=== PATIENT | female | born 1990 | race Caucasian/White ===

== ENCOUNTER 2024-03-12 21:37 | Emergency (ER) | payer OTHER, BC, SELFPAY ==
[2024-03-12 22:30] VITALS: BP 118/82; PULSE 74; TEMP 36.7; O2SAT 100; BMI 330.8
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
[2024-03-12] MEDS: ACETAMINOPHEN 325 MG TABLET 650 MG PO (23:19)
[2024-03-12] MEDS: IBUPROFEN 600 MG TABLET PO (23:20)
[2024-03-13 00:25] VITALS: BP 116/80; PULSE 81; O2SAT 98
[2024-03-13] MEDS: ONDANSETRON 4 MG RAPDIS TABLET SL (00:31)
[2024-03-13] MEDS: HYDROCODONE/ACET 5-325 MG TABLET 2 TAB PO (00:31)
== END 2024-03-13 00:36 | disposition home or self-care (01) ==
PROVIDERS: Emergency Provider Emergency Medicine
DX: S16.1XXA Strain of muscle, fascia and tendon at neck level, initial encounter (principal); S29.012A Strain of muscle and tendon of back wall of thorax, initial encounter; S63.501A Unspecified sprain of right wrist, initial encounter; V49.49XA Driver injured in collision with other motor vehicles in traffic accident, initial encounter
CPT/HCPCS: 71046; 72040; 72072; 73110; 73130; 99285; Q0162

== ENCOUNTER 2024-10-05 07:28 | Emergency (ER) | payer SELFPAY ==
--- OUTSIDE RECORDS SUMMARY | 2024-04-13 11:54 | XMS_ITS ---
Author Name Auto Generated Organization OHIP Care Team Providers Care Plate Setter Name Role Phone SOPHIE GUILLERMO Referring Unavailable NON STAFF Primary Care Unavailable AshleighDiana Admitting Unavailable Ashleigh Diana M Attending Unavailable NON STAFF Primary Care Unavailable AshleighMagalieDiana M Admitting Unavailable Ashleigh Diana M Attending Unavailable None Primary Care Unavailable Gerding MEASUREMENT AND SENSING TECHNICIAN-DINKEY MOTOR OPERATOR, Charisma A Attending Unavai lable Gerding MEASUREMENT AND SENSING TECHNICIAN-DINKEY MOTOR OPERATOR, Charisma A Attending Unavai lable None Primary Care Unavailable GERDING, CHARISMA Referring Unavailable No Family, Physician Primary Care Unavailable GERDING, CHARISMA Referring Unavailable No Family, Physician Primary Care Unavailable PROBLEMS DATE TYPE CONDITION / CODE ATTENDING STATUS [facility] 04/13/2024 Unknown Cough, unspecifi ed / R05.9(ICD-10) Diana Sotelo [facility] 04/13/2024 Unknown Shortness of karin ath / R06.02(ICD-10) Diana Sotelo [facility] 02/12/2024 Unknown Pain in left wri st / M25.532(ICD-10) NA [facility] 02/12/2024 Admitting diagnosis Pain in left wrist / M25.532(ICD-10) NA Active [facility] 02/12/2024 Working diagnosis Other obesity due to excess calories / UNK(Unknown) Gerding MEASUREMENT AND SENSING TECHNICIAN-DINKEY MOTOR OPERATORCharisma Active [facility] 02/12/2024 Unknown Encounter for gynecological examination (general) (routine) without abnormal findings / Z01.419(ICD-10) NA [facility] 02/12/2024 Unknown Pelvic and perin eal pain / R10.2(ICD-10) [facility] 02/12/2024 Unknown Encounter for screening for depression / Z13.31(ICD-10) [facility] 02/12/2024 Unknown 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, unspecified / D06.9(ICD-10) [facility] 02/12/2024 Unknown Gynecologic Exam / FREETEXT(AOF) [facility] 01/03/2024 Unknown Chronic cough / R05.3(ICD-10) Diana Sotelo [facility] 10/09/2023 Unknown Contraception / FREETEXT(AOF) [facility] PROCEDURES No Procedure Records Found RESULTS XR CHEST 2V* Observed: 04/13/2024 11:13 AM Status: COMPLETED Source: [facility] [place] [address] XRay Report Signed Patient: Sridevi Pandya MR#: [id number] : 1990 Acct:[id number] Age/Sex: 33 / F ADM Date: 04/13/24 Loc: XDUCLY Room: Type: [facility] Attending Dr: Diana Sotelo APRN Copies to: Diana Sotelo APRN Ordering Provider: Diana Sotelo APRN Date of Service: 04/13/24 XR/XR chest 2V*: R05.9 - Cough, unspecified Chest 2 views CLINICAL HISTORY: Productive cough with yellow phlegm. COMPARISON: Chest 01/03/2024 FINDINGS: Heart normal in size. Lungs are clear. No free air. XR/XR chest 2V* IMPRESSION: NO ACUTE CARDIOPULMONARY ABNORMALITY. Impression dictated by: Miles Ochoa Jr., D.O.04/13/2024 11:13 AM Dictation Location: [facility]22 Transcribed By: [facility] 04/13/241112 Dictated By: Miles Ochoa Jr, DO 04/13/24 111 Signed By: <Electronically signed by Miles Ochoa Jr, DO in OV> 04/13/24 1113 XR WRIST LEFT (MIN 3 VIEWS) Observed: 9:10 AM Status: F Source: [facility] XR WRIST LEFT (MIN 3 VIEWS) CLINICAL INFORMATION: Pain in left wrist COMPARISON: No prior study. TECHNIQUE: Standard views of the wrist were obtained FINDINGS: No acute fracture or dislocation is seen. There is no foreign body. Moderate soft tissue swelling overlies the carpal bones dorsally and medially. IMPRESSION: Soft tissue swelling. No fracture. This report has been created using voice recognition software. It may contain minor errors which are inherent in voice recognition technology. Electronically signed by Dr. Augustin Uriarte Interpreted by: Augustin Uriarte MD Signed by: Augustin Uriarte MD 02/13/24 Final result HIGH RISK HPV W/TRINA Observed: 4 3:19 AM Status: COMPLETED Source: [facility] HPV SPECIMEN TYPE ThinPrep HPV 16 Negative (qualifier value) HPV 18 Negative (qualifier value) OTHER HIGH RISK HPV Negative (qualifier value) HPV types 31,33,35,39,45,52,56,58,59,66 and 68 DNA were undetectable. Performed By: #### [id number] # ### [facility] ([id number]) [address] [facility] [address]LO[address] [place], [place] [address] [place] [address] LAB ([id number]) [address] [place] [address], [address] [place] [address] CYTOLOGY Collected: 4 3:19 AM Status: COMPLETED Source: [facility] TYPE CODE TESTS RESULT OUT OF RANGE REFERENCE UNITS LAB [id number]&rpt Cytology Normal Result Comment: [facility] [address] [place] [address] Gynecologic Cytology Consultation Patient Name:SRIDEVI PANDYA:1990 (Age: 33)Gender:FTaken:4Reported:4Physician(s):Sophie Draper, MEASUREMENT AND SENSING TECHNICIAN-[facility] ([phone])Copy To: Rec. #:[id number]: #[id number] Final Cytologic Interpretation ThinPrep Pap Test (Cervical): Satisfactory for evaluation. A transformation zone component is present. NEGATIVE FOR INTRAEPITHELIAL LESION OR MALIGNANCY. [facility]/02/28/2024 Interpretation [place] [address], License number: [id number]. Electronically Signed Out By FAB Pastor(ASCP) Date of Last Menstrual Period: 02/05/24 Other Clinical Conditions: Previous abnormal pap Z01.419 Regenerator Operator exam wo/abn findings D06.9 CIS of cervix Source of Specimen ThinPrep Pap Test (Cervical) Thin Prep Pap (STAFF CLIMATE SCIENTIST) Fee Code(s): 72207 The Pap test is a screening test with an inherent, but low, probability of error. The Pap test is primarily effective for the diagnosis and prevention of squamous cell carcinoma. Regular screening is critical for prevention. ThinPrep liquid-based slides, which meet the Wood Car Builder criteria for automated screening, have been screened by the AllocadePrep Imaging System (as of 12/16/06) along with an additional manual rescreening by a jewel inspector and, if indicated, by a pathologist. XR CHEST 2V* Observed: 01/03/2024 6:46 PM Status: COMPLETED Source: [facility] Main [place] [id number] XRay Report Signed Patient: Sridevi Pandya MR#: [id number] : 1990 Acct:[id number] Age/Sex: 33 / F ADM Date: 01/03/24 Loc: XDUCLY Room: Type: REG CLI Attending Dr: Diana Sotelo APRN Copies to: Diana Sotelo APRN Ordering Provider: Diana Sotelo APRN Date of Service: 01/03/24 XR/XR chest 2V*: R05.3 - Chronic cough Plain film chest 2 view HISTORY: Productive cough COMPARISON: None FINDINGS: SUPPORT DEVICES: None POSTSURGICAL CHANGES: None HEART: Within normal limits PULMONARY RHEA: Within normal limits MEDIASTINUM: Unremarkable LUNGS AND PLEURA: No acute lung process, pleural effusion or pneumothorax identified. BONY STRUCTURES: Intact ADDITIONAL FINDINGS None XR/XR chest 2V* IMPRESSION: No acute process. Impression dictated by: Henry Stout M.D.01/03/2024 6:47 PM Dictation Location: [place] [address] Transcribed By: [facility] 01/03/241846 Dictated By: Henry Stout DO 01/03/241845 Signed By: <Electronically signed by Henry Stout DO in OV> 01/03/241846 ALLERGIES DATE TYPE / CODE NAME / CODE REACTION SEVERITY SOURCE 04/13/2024 Drug Allergy/2248821 02(SNOMED CT) No Known Allergies/S032440485 (RXNORM) Unknown [facility] Drug Class/127927322 (SNOMED CT) NO KNOWN ALLERGIES [facility] ENCOUNTERS ADMIT/DISCHARGE ACCOUNT NUMBER ADMITTING ENCOUNTER CLASS LOCATION SOURCE 04/13/2024/04/13/19 [id number] [facility]02/12/20 [id number] Ambulatory Building:[facility] 02/12/2024/02/12/20 24 [id number] Ambulatory Building:[facility] 02/12/2024/02/12/20 24 [id number] [facility] 02/12/2024/02/12/20 24 [id number] [address] [place] [address] [facility] 02/12/2024/02/12/20 24 [id number] [facility]02[facility]12[facility]20 24 [id number] Ambulatory Building:PF _LAB [facility] 01/03/2024/01/03/20 [id number] Ashleigh Diana Fan [facility] 10/09/2023 [id number] Ambulatory Buildin 1 [facility] PAYERS ENCOUNTER GUARANTOR PAYER SUBSCRIBER SOURCE 04/13/[address] [address]Jsu: () Primary Insurance:Self PayPolicy Number: Effective Date:2024-04-13 [facility]2024 SRIDEVI RUBIB: [address] [address]Wnp: () Primary Insurance:GENERIC MCOPolicy Number: [id number] Date:2024-02-11 BROKEN ARROW ABADOB: [id number] [place], [place] [address]Yux: () [facility] 02/12/2024 SRIDEVI RUBIB: [address] [address]Puu: () Primary Insurance:GENERIC MCOPolicy Number: [id number] Date:2024-02-11 BROKEN ARROW ABADOB: [id number] [place], [place] [address]Pby: () [facility] 02/12/2024 SRIDEVI PANDYA[address] [address] Primary Insurance:BLUE CROSSPolicy Number: [id number] Date:[id number] [address]XJ: SRIDEVI PHAMERGENSDOB: [id number] [address] [place] [address]Rab: (HP) [facility] 02/12/2024 Secondary Insurance:SELF PAYPolicy Number: Effective Date:[address] [place], [place] [address]WN[facility]/12/2024 SRIDEVI Tl RUBIB: [address] [address]Tbi: (HP) Primary Insurance:ANTHEM DIRECT ACCESS - JWQ PREFIXPolicy Number: [id number] Date:2023-11-14 SRIDEVI RUBIB: [id number] [place] [address] [place] [address] [facility] 02/12/2024 SRIDEVITONIE PANDYA43[address] [address] Primary Insurance:SELF PAYPolicy Number: Effective Date:[address] [place], [place] [address]TH: [facility] 02/12/2024 SRIDEVI Tl RUBIB: [address] [address]Unb: (HP) Primary Insurance:ANTHEM DIRECT ACCESS - JWQ PREFIXPolicy Number: [id number] Date:2023-11-14 SRIDEVI RUBIB: [id number] [place] [address] [place] [address] [facility] 01/03/2024 Sridevi Brownns[address] [place] [address]Uip: (HP) Primary Insurance:[place] BC/BSPolicy Number: [id number] Date:2024-01-03 Sridevi RubiB: [id number] [address] [place] [address]Awp: (HP) [facility] 01/03/2024 Secondary Insurance:Self PayPolicy Number: Effective Date:2024-01-03 NOT GIVENUNK [facility] 10/09/2023 SRIDEVI SUERO: [id number] [address]Yat: (HP) Primary Insurance:BCBS OUT OF STATE PPO/TRUSTPolicy Number: [id number] Date:2023-04-01 SRIDEVI SUERO: [id number] [address]Hwb: (HP) [facility]
[2024-10-05 07:31] VITALS: BP 132/95; PULSE 95; TEMP 36.9; O2SAT 96; BMI 34.5
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
[2024-10-05] MEDS: KETOROLAC TROMETHAMINE 60 MG/2 ML VIAL IM (08:05)
== END 2024-10-05 08:58 | disposition home or self-care (01) ==
PROVIDERS: Emergency Provider Emergency Medicine
DX: S83.91XA Sprain of unspecified site of right knee, initial encounter (principal); Y93.19 Activity, other involving water and watercraft
CPT/HCPCS: 73562; 96372; 99284; J1885

== ENCOUNTER 2024-10-11 13:25 | Emergency (ER) | payer OTHER, SELFPAY ==
--- OUTSIDE RECORDS SUMMARY | 2021-11-03 06:15 | XMS_ITS | Continuity of Care Document ---
Author Organization [facility] Address [address] [place] [address] Phone Care Team Providers Care Senior Living Advisor Name Role Phone JHONY BAH JULIE Unavailable Unavailable Procedures Procedure Date REPEAT ULTRASOUND EST PT, LOW VISIT REPEAT ULTRASOUND EST PT, HIGH VISIT REPEAT ULTRASOUND LIMITED ULTRASOUND EST PT, LOW VISIT GENETIC COUNSELING SERVICE AT [facility] NEW PT, LOW VISIT COMPREHENSIVE DETAILED ULTRASOUND TRANSVAGINAL (OB) Advance Directives Directive Yes / No Effective Date File Name No Information Encounters Encounter Description Practice Location Reason(s) For Visit Diagnoses Date Provider Providers Copied on Encounter [facility], [address], [place], [address], [place] tel:[phone] [facility] Screening follow-up, Non-visualized anatomy on a previous scanMaternal care for other (suspected) abnormality and damageWeeks Gestation of HJONY BAH. [address], [address], [place], [address], [place]. tel:[phone] Referring Provider: Tomas [address], [place], [address]. tel:[phone] EST PT, LOW VISIT [facility], [address], [place], [address], [place] tel:[phone] [facility] Weeks Gestation of PregnancyMaternal care for other (suspected) abnormality and damageScreening follow-up, Non-visualized anatomy on a previous scan 2 JHONY DUTTA. [address], [address], [place], [address], [place]. tel:[phone] Referring Provider: WISAM WILKERSON, Tomas [facility] [address], [place], [address]. tel:[phone] EST PT, HIGH VISIT [facility], [address], [place], [address], [place] tel:[phone] [facility] Weeks Gestation of PregnancyMaternal care for other (suspected) abnormality and damageWeeks Gestation of PregnancyScreening follow-up, Non-visualized anatomy on a previous scan 2 MD AMANDA POWER. [address], [address], [place], [place], [id number] , [place]. tel:[phone] Referring Provider: VERONIKA MATA, [address] [facility] [address], [place], [address]. tel:[phone] EST PT, LOW VISIT [facility], [address], [place], [address], [place] tel:[phone] [facility] Weeks Gestation of PregnancyMaternal care for other (suspected) abnormality and damage 2 MD VINAY FRANCO. [address], [address], [place], [address], [place]. tel:[phone] Referring Provider: VERONIKA MATA, [address], [place], [address]. tel:[phone] [facility], [address], [place], [address], [place] tel:[phone] [facility] No Information 2 MD AUSTIN SCOTT. [address], [address], [place], [address], [place]. [phone] Referring Provider: VERONIKA MATA, [address] [facility] [address], [place], [address]. tel:[phone] NEW PT, LOW VISIT [facility], [address], [place], [address], [place] tel:[phone] [facility] Weeks Gestation of PregnancyMaternal care for other (suspected) abnormality and damageScreening for cervical length for risk of pre-term labor Apr-2 2 MD MAGGIE RUSS. [address], [address], [place], [address], [place]. tel:[phone] Referring Provider: VERONIKA MATA, [address] [facility] [address], [place], [address]. tel:[phone] Family History Family Member Type Diagnosis Age At Onset No Information Payers Payer name Insurance type Covered libertarian ID Authoriza tion(s) [facility] BLUE CARD [id number] PPO [id number] Social History Type Description Quantity Date Captured Comments Sex Female Smoking Status No Information Chief Complaint And Reason For Visit No Information History Of Present Illness Encounter Date Complaint History Of Prese nt Illness No Information Instructions Date Instruction Additional Infor mation No Information Assessments Type Assessment Date No Information
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
[2024-10-11 13:31] VITALS: BP 139/90; PULSE 115; O2SAT 100; BMI 32.9
--- OUTSIDE RECORDS SUMMARY | 2024-10-11 13:42 | XMS_ITS | Clinical Summary ---
Author Organization [employer] [facility] tem Address [id number] [address] [place] [address] Care Team Providers Care Coding Educator Name Role Phone Unavailable Primary Care Provider Unavailabl e Allergies No known active allergies Medications sertraline (ZOLOFT) 25 mg tablet Take 1 tablet (25 mg total) by mouth in the morning. Active Active Problems Problem Noted Date Diagnosed Date Low back pain 02/12/2024 Obesity (BMI 30.0-34.9) 02/12/2024 Overview (02/12/2024): Discussed BMI at well woman visit Family History Relation Name Status Comments Father Alive Mother Alive Social History Tobacco Use Types Packs/Day Years Used Date Smoking Tobacco: Never Smokeless Tobacco: Never Tobacco Cessation:Counseling Given: Not Answered Alcohol Use Standard Drinks/Week Comments Yes 0 (1 standard drink = 0.6 oz pur e alcohol) socially PHQ-2 Answer Date Recorded Total Score 0 02/12/2024 Hunger Screening Answer Date Recorded Within the past 12 months we worried whether our food would run out before we got money to buy more. Never True 02/12/2024 Within the past 12 months th e food we bought just didn't last and we didn't have money to get more. Never True 02/12/2024 Comments Unknown Sex and Gender Information Value Date Recorded Sex Assigned at Not on file Legal Sex Female 2:11 PM EDT Gender Identity Not on file Sexual Orientation Not on file Last Filed Vital Signs Vital Sign Reading Time Taken Comments Blood Pressure 116/72 02/12/2024 10:22 AM EST Pulse - - Temperature - - Respiratory Rate - - Oxygen Saturation - - Inhaled Oxygen Concentration - - Weight 98.4 kg (217 lb) 02/12/2024 10:22 AM EST Height 170.2 cm (5' 7 ) 02/12/2024 10:22 AM EST Body Mass Index 33.99 02/12/2024 10:22 AM EST Plan of Treatment Health Maintenance Due Date Last Done Comments DTaP,Tdap and Td Vaccines (6 - Tdap) 08/24/2002 12/03/1995, 12/12/1992, 03/11/1992, Additional history exists Influenza Vaccine 11/30/2024 Adult BMI Follow Up Plan 02/11/2025 02/12/2024 Adult BMI Screening 02/11/2025 02/12/2024 Depression Screening 02/11/2025 02/12/2024 Tobacco Screening 02/11/2025 02/12/2024 Pap Smear 02/11/2027 02/12/2024, 01/30, 07/09/2023, Additional history exists Medical Devices Not on file Procedures Procedure Name Priority Date/Time Associated Diagnosis Comments HIGH RISK HPV W/TRINA Routine 02/12/2024 3:19 AM EST Cervical smear, as part of routine gynecological examination High grade squamous intraepithelial lesion (HGSIL), grade 3 POLLY, on biopsy of cervix from Last 3 Months or Most Recently Relevant to Health Maintenance Results * High risk HPV w/trina (02/12/2024 3:19 AM EST) Hpv specimen type ThinPrep 02/13/2024 3:19 AM EST [facility] Hpv 16 Negative Negative^N egative 02/14/2024 7:03 AM EST [facility] Hpv 18 Negative Negative^N egative 02/14/2024 7:03 AM EST [facility] Other high risk hpv Negative Negative^N egative 02/14/2024 7:03 AM EST [facility] Comment: HPV types 31,33,35,39,45,52,56,58,59,66 and 68 DNA were undetectable. THINP 02/12/2024 3:19 AM EST 02/13/2024 3:20 AM EST us Sophie Fan Draper TAX ANALYST-DIRECTOR OF PREMIUM SEAT SALES LAB BLOOD ORDERABLES Fin al Result APRIL [facility] [address] [facility] [place] [address] [facility] [address] [facility] [place] [address] from Last 3 Months or Most Recently Relevant to Health Maintenance Insurance [facility] [employer]
--- OUTSIDE RECORDS SUMMARY | 2024-10-11 13:42 | XMS_ITS | Clinical Summary ---
Author Organization [facility] Address [address] [place] [address] Care Team Providers Care Assistant Child Care Teacher Name Role Phone Unavailable Primary Care Provider Unavailabl e Social History Tobacco Use Types Packs/Day Years Used Date Smoking Tobacco: Never Assessed Comments Unknown Sex and Gender Information Value Date Recorded Sex Assigned at Not on file Legal Sex Female 5:03 PM EST Gender Identity Not on file Sexual Orientation Not on file Plan of Treatment Health Maintenance Due Date Last Done Comments DTaP/Tdap/Td vaccine (6 - Tdap) 08/24/2002 12/03/1995, 12/12/1992, 03/11/1992, Additional history exists Depression Screen 2003 Varicella vaccine (1 of 2 - 13+ 2-dose series) 08/24/2004 HIV screen 08/24/2006 Hepatitis C screen 08/24/2009 Hepatitis B vaccine (1 of 3 - 19+ 3-dose series) 08/24/2010 Pap smear 08/24/2012 Cervical cancer screen 08/24/2021 HPV (without or with Pap) 08/24/2021 COVID-19 Vaccine ( season) 2023 06/19/2020, 05/29/2020 Flu vaccine (#1) 10/30/2024 Hib vaccine Completed 12/12/1992, [birth year]/01, 1990, Additional history exists Polio vaccine Completed 12/03/1995, 12/01, 1991, Additional history exists HPV vaccine Aged Out No longer eligi ble based on patient's age to complete this topic Hepatitis A vaccine Aged Out No longe r eligible based on patient's age to complete this topic Meningococcal (ACWY) vaccine Aged Out No longer eligible based on patient's age to complete this topic Meningococcal B vaccine Aged Out No l onger eligible based on patient's age to complete this topic Pneumococcal 0-49 years Vaccine Aged Out No longer eligible based on patient's age to complete this topic Insurance [facility]
--- OUTSIDE RECORDS SUMMARY | 2024-10-11 13:46 | XMS_ITS | CCD ---
Author Organization [facility] Care Team Providers Care Event Planner Name Role Phone NON STAFF Primary Care Provider Unavailabl e Ashleigh, MALISSA Chavira Attending Provider Unavailable Primary Care Provider Unavailabl e None, Physician Primary Care Provider [phone] Gerding Charisma LEONARDO Attending Provider [phone] GERDING, CHARISMA Referring Unavailable No Family, Physician Primary Care Unavailable GERDING, CHARISMA Referring Unavailable No Family, Physician Primary Care Unavailable None, Physician Primary Care Provider Gerding Charisma LEONARDO Attending Provider KROTZER SOPHIE M Referring Unavailable KROTZER, SOPHIE M Referring Unavailable NON STAFF Primary Care Provider Unavailabl e Ashleigh Diana LEONARDO Attending Provider None Primary Care Unavailable Gerding Charisma LILLY Attending Unavai labcammy Gerding Charisma LILLY Attending Unavai labcammy None Primary Care Unavailable Unavailable Primary Care Provider Unavailabl e NON STAFF Primary Care Provider Unavailabl e Sebastian Watkins DO Attending Provider Ashleigh Diana Fan Admitting Unavailable Ashleigh, Diana M Attending Unavailable NON STAFF Primary Care Unavailable Ashleigh, Diana M Admitting Unavailable Ashleigh, Diana M Attending Unavailable NON STAFF Primary Care Unavailable Sebastian Watkins Attending Unavailable NON STAFF Primary Care Unavailable Sebastian Watkins Admitting Unavailable Aurelia Rodríguez APRN Attending Provider Medications Current Medications Medication Drug Class(es) Dates Sig (Normalized) Sig (Original) Albuterol Sulfate 90 mcg/actuation HFA aerosol inhaler (2 sources) Start: 04-13-2024 Albuterol Sulfate 90 mcg/actuation HFA aerosol inhaler Active 2 INH INHALATION EVERY 4-6 HOURS as needed for shortness of breath or wheezing 6.7 April 13, 2024 12:00am diclofenac sodium 75 mg delayed release oral tablet (2 sources) Nonsteroidal Anti-inflammatory Drug Start: 10-11-2024 take 1 tablet by mouth twice daily as needed Diclofenac Sodium 75 mg tablet,delayed release (DR/EC) Active 75 MG PO Twice daily as needed October 11, 2024 12:00am Complies with drug therapy Ethinyl Estradiol / Levonorgestrel (2 sources) Progestin, Estrogen, Progestin-containi ng Intrauterine Device Start: 07-09-2023 End: 02-12-2024 take 1 tablet by mouth every month in the morning L norgest/e.estradio L-e.estrad (AMETHIA) 0.15 mg-30 mcg (84)/10 mcg (7) tablets,dose pack,3 month Indications: Encounter for general counseling and advice on contraceptive management , Encounter for initial prescription of contraceptive pills Take 1 tablet by mouth in the morning. 91 each 07/09/2023 02/12/2024 Discontinued (Patient Never Started This Medication) Start: 07-09-2023 take 1 tablet by patricia th every month in the morning L norgest/e.estradioL-e.estrad (AMETHIA) 0.15 mg-30 mcg (84)/10 mcg (7) tablets,dose pack,3 month Indications: Encounter for general counseling and advice on contraceptive management , Encounter for initial prescription of contraceptive pills Take 1 tablet by mouth in the morning. 91 each 07/09/2023 Active sertraline 50 mg oral tablet (11 sources) Serotonin Reuptake Inhibitor Start: 10-11-2024 take 1 tablet by mouth once daily Sertraline 50 mg tablet Active 50 MG PO Daily October 11, 2024 12:00am Complies with drug therapy Start: 05-31-2023 End: 10-11-2024 take 1 tablet by mouth once daily Sertraline 25 mg tablet Discontinued 25 MG PO Daily May 31, 2023 1:00am October 11, 2024 12:34pm Completed/Discontinued Medications Medication Drug Class(es) Dates Sig (Normalized) Sig (Original) [id number] 200 actuat albuterol 0.09 mg/actuat metered dose inhaler (3 sources) beta2-Adrenergic Agonist Start: 04-13-2024 End: 10-11-2024 Albuterol Sulfate 90 mcg/actuation HFA aerosol inhaler Discontinued 2 INH INHALATION EVERY 4-6 HOURS as needed for shortness of breath or wheezing 6.7 April 13, 2024 1:00am October 11, 2024 12:34pm azithromycin 250 mg oral tablet (12 sources) Macrolide Antimicrobial Start: 01-03-2024 End: 10-11-2024 Azithromycin 250 mg tablet Discontinued 0 PO .COMPLEX April 13, 2024 1:00am October 11, 2024 12:34pm For 250 mg dose pack: take 500 mg today (day 1), then 250 mg for 4 days (days 2-5) PO Start: 01-03-2024 Azithromycin A ctive 0 PO .COMPLEX January 03, 2024 12:00am For 250 mg dose pack: take 500 mg today (day 1), then 250 mg for 4 days (days 2-5) PO methylPREDNISolone 4 mg oral tablet (19 sources) Corticosteroid Start: 05-31-2023 End: 10-11-2024 take 1 tablet by mouth once Methylprednisolone (Medrol (Kentrell)) 4 mg tablets,dose pack Discontinued 0 PO per package directions April 13, 2024 1:00am October 11, 2024 12:34pm PO PER PKG DIR Problems Active Problems Problem Classification Problem Date Documented Da te Episodic/Chronic Abdominal pain (2 sources) Pelvic and perineal pain; Translations: [Pain in pelvis] Onset: 02-12-2024 02-12-2024 Episodic Anxiety disorders (5 sources) Anxiety; Translations: [Anxiety disorder, unspecified] 04-13-2024 Chronic Cancer of cervix (3 sources) Carcinoma in situ of cervix, unspecified; Translations: [Abnormal histological finding in specimen from female genital organ] Onset: 02-12-2024 02-12-2024 Episodic Chronic obstructive pulmonary disease and bronchiectasis (7 sources) Bronchitis; Translations: [Bronchitis, not specified as acute or chronic] 04-13-2024 Episodic Mood disorders (5 sources) Depressive disorder; Translations: [Depression] 04-13-2024 Chronic Other lower respiratory disease (8 sources) Persistent cough; Translations: [Persistent cough for 3 weeks or longer] 01-03-2024 Episodic Other lower respiratory disease (5 sources) Dyspnea; Translations: [Shortness of breath] 04-13-2024 Episodic Other lower respiratory disease (5 sources) Cough; Translations: [Cough] 04-13-2024 Episodic Other non-traumatic joint disorders (1 source) Pain of left wrist; Translations: [Pain in left wrist] 02-12-2024 Episodic Other non-traumatic joint disorders (3 sources) Pain in left wrist; Translations: [Pain in left wrist] Onset: 02-12-2024 Episodic Other non-traumatic joint disorders (4 sources) Pain in right knee; Translations: [Right knee pain] Onset: 10-06-2024 10-05-2024 Episodic Other nutritional; endocrine; and metabolic disorders (1 source) Obese class I; Translations: [Obesity (BMI 30.0-34.9)] Onset: 02-12-2024 02-12-2024 Chronic Other upper respiratory infections (2 sources) Acute pharyngitis, unspecified; Translations: [Acute pharyngitis] 01-03-2024 Episodic Otitis media and related conditions (7 sources) Acute right otitis media; Translations: [Otitis media, unspecified, right ear] 01-03-2024 Episodic Screening and history of mental health and substance abuse codes (2 sources) Encounter for screening for depression; Translations: [Standardized adult depression screening tool completed ] Onset: 02-12-2024 02-12-2024 Episodic Spondylosis; intervertebral disc disorders; other back problems (10 sources) Low back pain; Translations: [Low back pain] Onset: 02-12-2024 05-31-2023 Episodic Unclassified (1 source) Gynecologic Exam Onset: 02-12-2024 Unclassified (1 source) Cough, unspecified; Translations: [Cough, unspecified] Onset: 04-13-2024 Past or Other Problems Problem Classification Problem Date Documented Date Episodic/Chronic Contraceptive and procreative management (3 sources) Contraception ; Translations: [Patient encounter status] Onset: 10-09-2023 07-09-2023 Episodic Mood disorders (1 source) Mood disorders Onset: 02-12-2024 02-12-2024 Other female genital disorders (1 source) Personal history of other diseases of the female genital tract; Translations: [Personal history of other diseases of the female genital tract] Onset: 07-09-2023 Episodic Other female genital disorders (1 source) History of abnormal cervical Papanicolaou smear ; Translations: [Personal history of other diseases of the female genital tract] 07-09-2023 Episodic Other lower respiratory disease (1 source) Shortness of breath; Translations: [Shortness of breath] Onset: 04-13-2024 Episodic Other lower respiratory disease (1 source) Chronic cough; Translations: [Chronic cough] Onset: 01-03-2024 Episodic Other screening for suspected conditions (not mental disorders or infectious disease) (2 sources) Encounter for screening for malignant neoplasm of cervix; Translations: [Cancer cervix screening status] Onset: 07-09-2023 07-09-2023 Episodic Unclassified (1 source) Onset: 02-12-2024 02-12-2024 Results Test Name Value Interpretation Reference Range Facility X-ray reportOrdered By: Israel Ochoa on 04-13-2024 Study report [facility] [place] [address] XRay Report Signed Patient: Sridevi Pandya MR#: [id number] : 1990 Acct:[id number] Age/Sex: 33 / F ADM Date: 5 [facility] Attending Dr: Diana Sotelo APRN Copies to: Diana Sotelo APRN~ Ordering Provider: Diana Sotelo APRN Date of Service: 04/13/24 XR/XR chest 2V*: R05.9 - Cough, unspecified Chest 2 views CLINICAL HISTORY: Productive cough with yellow phlegm. COMPARISON: Chest 01/03/2024 FINDINGS: Heart normal in size. Lungs are clear. No free air. XR/XR chest 2V* IMPRESSION: NO ACUTE CARDIOPULMONARY ABNORMALITY. Impression dictated by: Miles Ochoa Jr., D.O.04/13/2024 11:13 AM Dictation Location: [place] [address] Transcribed By: [facility] 04/13/24 111 Dictated By: Miles Ochoa Jr, DO 04/13/24 111 Signed By: 04/13/24 1113 [facility] XR chest 2V*on 04-13-2024 XR chest 2V* [facility] [address] [place] [address] [place] [address] XRay Report Signed Patient: Sridevi Pandya MR#: [id number] : 1990 Acct:[id number] Age/Sex: 33 / F ADM Date: 04/13/24 Loc: [facility] Room: Type: [facility] Attending Dr: Diana Sotelo APRN Copies to: Diana Sotelo APRN Ordering Provider: iDana Sotelo APRN Date of Service: 04/13/24 XR/XR chest 2V*: R05.9 - Cough, unspecified Chest 2 views CLINICAL HISTORY: Productive cough with yellow phlegm. COMPARISON: Chest 01/03/2024 FINDINGS: Heart normal in size. Lungs are clear. No free air. XR/XR chest 2V* IMPRESSION: NO ACUTE CARDIOPULMONARY ABNORMALITY. Impression dictated by: Miles Ochoa Jr., D.OMadyson04/13/2024 11:13 AM Dictation Location: [facility] Transcribed By: [facility] 04/13/24 1113 Dictated By: Miles Ochoa Jr, DO 04/13/24 1113 Signed By: 04/13/24 1113 Normal [facility] XR WRIST LEFT (MIN 3 VIEWS)o n 02-13-2024 XR WRIST LEFT (MIN 3 VIEWS) XR WRIST LEFT (MIN 3 VIEWS) CLINICAL [...] by: Augustin Uriarte MD 02/13/24 Final result Normal [facility] Cytologyon 02-12-[address] [facility] Comment on above: Result Comment: [facility] [address] [place] [address] Gynecologic Cytology Consultation Patient Name:SRIDEVI PANDYA:1990 (Age: 33)Gender:FTaken:4Reported:4Physician(s):Saumya Draper, [facility] ([phone])Copy To: Rec. #:[id number]: #[id number] Final Cytologic Interpretation ThinPrep Pap Test (Cervical): Satisfactory for evaluation. A transformation zone component is present. NEGATIVE FOR INTRAEPITHELIAL LESION OR MALIGNANCY. [facility]/02/28/2024 Interpretation performed at [facility], [address] [place] [address], License number: [id number]. Electronically Signed Out By FAB Pastor(ASCP) Date of Last Menstrual Period: 02/05/24 Other Clinical Conditions: Previous abnormal pap Z01.419 Supply Service Worker exam wo/abn findings D06.9 CIS of cervix Source of Specimen ThinPrep Pap Test (Cervical) Thin Prep Pap (POWER SUPPLY ENGINEER) Fee Code(s): 34962 The Pap test is a screening test with an inherent, but low, probability of error. The Pap test is primarily effective for the diagnosis and prevention of squamous cell carcinoma. Regular screening is critical for prevention. ThinPrep liquid-based slides, which meet the Digital Editor criteria for automated screening, have been screened by the PT PALPrep Imaging System (as of 12/16/06) along with an additional manual rescreening by a fittings finisher and, if indicated, by a pathologist. HIGH RISK HPV W/GENOon 02-11 HPV 31+33+35+39+45+51+52+56 +58+59+66+68 DNA DIEGO+probe Ql (Cvx) HPV SPECIMEN TYPE ThinPrep HPV 16 Negative (qualifier value) HPV 18 Negative (qualifier value) OTHER HIGH RISK HPV Negative (qualifier value) HPV types 31,33,35,39,45,52,56, 58,59,66 and [address] [facility] Comment on above: Performed By: #### 7 1431-1 #### [facility] ([id number]) [address] [facility], [place] [address] [facility] ([id number]) [address] [place] [address], [address] [place] [address] No Panel InformationOrdered By: Diana Sotelo on 01-03-2024 Quick Strep (POC) [facility] XR chest 2V*on 01-03-2024 XR chest 2V* [facility] [address] [place] [address] [place] [address] XRay Report Signed Patient: Sridevi Pandya MR#: [id number] : 1990 Acct:[id number] Age/Sex: 33 / F ADM Date: 01/03/24 [facility]: Type: [facility] Attending Dr: Diana Sotelo NITROGEN OPERATOR Copies to: Diana Sotelo APRN Ordering Provider: [...] Henry Stout M.D.01/03/2024 6:47 PM Dictation Location: [place] [address] Transcribed By: [facility] 01/03/241846 Dictated By: Henry Stout DO 01/03/241845 Signed By: 01/03/241846 Normal [facility] Cytologyon 07-09-[address] [facility] Comment on above: Result Comment: [facility] [address] [place] [address] Gynecologic Cytology Consultation Patient Name:SRIDEVI PANDYA:1990 (Age: 32)Gender:FTaken:4Reported:4Physician(s):Sophie Junior APRN-CNPCopy To: Rec. #:[id number]: #[id number] Final Cytologic Interpretation ThinPrep Pap Test (Cervical): Satisfactory for evaluation. A transformation zone component is present. NEGATIVE FOR INTRAEPITHELIAL LESION OR MALIGNANCY. jja/07/24/2023 Interpretation performed at [facility], [address] [place] [address], License number: [id number]. Electronically Signed Out By FAB Kruger(ASCP) Date of Last Menstrual Period: 07/04/23 Other Clinical Conditions: Z12.4 Screening for malignant neoplasm of cervix Z87.42 Personal history of other disease of the female genital tract Previous abnormal pap Source of Specimen ThinPrep Pap Test (Cervical) Thin Prep Pap (POWER SUPPLY ENGINEER) Fee Code(s): G0145 HIGH RISK HPV W/GENOon 07-08 HPV 31+33+35+39+45+51+52+56 +58+59+66+68 DNA DIEGO+probe Ql (Cvx) HPV SPECIMEN TYPE ThinPrep HPV 16 Negative (qualifier value) HPV 18 Negative (qualifier value) OTHER HIGH RISK HPV Negative (qualifier value) HPV types 31,33,35,39,45,52,56, 58,59,66 and [address] [facility] Comment on above: Performed By: #### 7 1431-1 #### [facility] ([id number]) [address] [place] [address], FIRST FLO[address] LAB ([id number]) [address] [place] [address], [address] [place] [address] Vital Signs Date Time Vital Sign Value Performing Clinician Jeanette escobar 10-11-2024 12:33-0400 Body height 170.18 cm [facility] 10-11-2024 12:33-0400 Body mass index (BMI) [Ratio] 33.5 kg/m2 [facility] 10-11-2024 12:33-0400 Body temperature 98.6 [degF] [facility] 10-11-2024 12:33-0400 Body weight 97.18 kg [facility] 10-11-2024 12:33-0400 Diastolic blood pressure 93 mm[Hg] [facility] 10-11-2024 12:33-0400 Heart rate 117 /min [facility] 10-11-2024 12:33-0400 Respiratory rate 20 /min [facility] 10-11-2024 12:33-0400 SaO2% (BldA) [Mass fraction] 99 % [facility] 10-11-2024 12:33-0400 Systolic blood pressure 137 mm[Hg] [facility] 04-13-2024 09:42-0500 Body height 170.18 cm [facility] 04-13-2024 09:42-0500 Body mass index (BMI) [Ratio] 33.5 kg/m2 [facility] 04-13-2024 09:42-0500 Body temperature 98.3 [degF] [facility] 04-13-2024 09:42-0500 Body weight 97.18 kg [facility] 04-13-2024 09:42-0500 Diastolic blood pressure 86 mm[Hg] [facility] 04-13-2024 09:42-0500 Heart rate 84 /min [facility] 04-13-2024 09:42-0500 Respiratory rate 14 /min [facility] 04-13-2024 09:42-0500 SaO2% (BldA) [Mass fraction] 98 % [facility] 04-13-2024 09:42-0500 Systolic blood pressure 120 mm[Hg] [facility] 02-12-2024 10:22-0500 Body height 170.2 cm [facility] 02-12-2024 10:22-0500 Body mass index (BMI) [Ratio] 33.99 kg/m2 [facility] 02-12-2024 10:22-0500 Body weight 98.43 kg [facility] Garbage Collector Supervisor [facility] 02-12-2024 10:22-0500 Diastolic blood pressure 72 mm[Hg] [facility] Garbage Collector Supervisor [facility] 02-12-2024 10:22-0500 Systolic blood pressure 116 mm[Hg] [facility] Garbage Collector Supervisor [facility] 01-03-2024 18:09-0400 Body height 170.18 cm [facility] 01-03-2024 18:09-0400 Body mass index (BMI) [Ratio] 34 kg/m2 [facility] 01-03-2024 18:09-0400 Body temperature 98 [degF] [facility] 01-03-2024 18:09-0400 Body weight 98.48 kg [facility] 01-03-2024 18:09-0400 Diastolic blood pressure 88 mm[Hg] [facility] 01-03-2024 18:09-0400 Heart rate 93 /min [facility] 01-03-2024 18:09-0400 Respiratory rate 16 /min [facility] 01-03-2024 18:09-0400 SaO2% (BldA) [Mass fraction] 98 % [facility] 01-03-2024 18:09-0400 Systolic blood pressure 128 mm[Hg] [facility] 07-09-2023 11:34-0400 Body height 170.2 cm [facility] Garbage Collector Supervisor [facility] 07-09-2023 11:34-0400 Body mass index (BMI) [Ratio] 33.77 kg/m2 [facility] Garbage Collector Supervisor [facility] 07-09-2023 11:34-0400 Body weight 97.8 kg [facility] Garbage Collector Supervisor [facility] 07-09-2023 11:34-0400 Diastolic blood pressure 80 mm[Hg] [facility] Garbage Collector Supervisor [facility] 07-09-2023 11:34-0400 Systolic blood pressure 124 mm[Hg] [facility] Garbage Collector Supervisor [facility] Encounters Encounter Date Encounter Type Care Provider Facility Start: 10-11-2024 End: 10-11-2024 ambulatory NON STAFF [facility] Work Phone: Start: 10-11-2024 End: 10-11-2024 Patient encounter procedure Aurelia Rodríguez NITROGEN OPERATOR -[facility] Work Phone: Start: 10-06-2024 End: 10-06-2024 Patient encounter procedure Sebastian Kely Watkins DO -[facility] Start: 10-06-2024 End: 10-06-2024 ambulatory NON STAFF [facility] Work Phone: Start: 04-13-2024 End: 04-13-2024 Patient encounter procedure [facility] Work Phone: Start: 04-13-2024 End: 04-13-2024 ambulatory NON STAFF [facility] Work Phone: Start: 04-13-2024 End: 04-13-2024 ambulatory NON STAFF [facility] Work Phone: Start: 04-13-2024 End: 04-13-2024 Patient encounter procedure [facility] Work Phone: Start: 02-12-2024 End: 02-12-2024 ambulatory CHARISMA GIL [facility] Start: 02-12-2024 End: 02-12-2024 Subsequent hospital visit by physician Sharon Fowler [facility]iology [facility] Comment on above: Left wrist pain Start: 02-12-2024 End: 02-12-2024 ambulatory Physician None Work Phone: [facility] Work Phone: Start: 02-12-2024 End: 02-12-2024 Patient encounter procedure Charisma Gil NITROGEN OPERATOR-ABATTOIR MANAGER [facility] Start: 02-12-2024 End: 02-12-2024 Patient encounter procedure [facility] Garbage Collector Supervisor [facility] Start: 02-12-2024 End: 02-12-2024 Periodic preventive med est patient 18-39 yrs [facility] Ob Garbage Collector Supervisor [facility] [place] Comment on above: Well woman exam with routine gynecological exam (Primary Dx); Pelvic pain; Standardized adult depression screening tool completed; Cervical smear, as part of routine gynecological examination; High grade squamous intraepithelial lesion (HGSIL), grade 3 POLLY, on biopsy of cervix Start: 02-12-2024 End: 02-12-2024 [facility] Start: 02-12-2024 End: 02-12-2024 Encounter for gynecological examination (general) (routine) without abnormal findings [facility] Garbage Collector Supervisor [facility] Start: 02-12-2024 End: 02-12-2024 ambulatory Physician None Work Phone: [facility] Work Phone: Start: 02-12-2024 End: 02-12-2024 ambulatory [facility] Start: 02-12-2024 Encounter for gynecological examination (general) (routine) without abnormal findings [facility] Start: 01-03-2024 End: 01-03-2024 ambulatory NON STAFF [facility] Work Phone: Start: 01-03-2024 End: 01-03-2024 Patient encounter procedure [facility] [employer] [facility] Work Phone: Start: 10-09-2023 [facility] Start: 07-09-2023 End: 07-09-2023 Office outpatient new 30 minutes [facility] Ob Garbage Collector Supervisor [facility] [place] Comment on above: Screening for cervic al cancer (Primary Dx); Hx of abnormal cervical Pap smear; Encounter for general counseling and advice on contraceptive management; Encounter for initial prescription of contraceptive pills Start: 07-09-2023 End: 07-09-2023 ambulatory [facility] Procedures Date Procedure Procedure Detail Performing Clinician Start: 04-13-2024 Plain chest X-ray Start: 02-12-2024 Adult depression scr eening assessment [facility] Garbage Collector Supervisor Start: 01-03-2024 Plain chest X-ray Start: 01-03-2024 Quick Strep (POC) Start: 07-09-2023 Microscopic observat ion [Identifier] in Cervix by Cyto stain [facility] Garbage Collector Supervisor Plan of Treatment Date Care Activity Detail Author Start: 07-08-2026 Screening for malign ant neoplasm of cervix Pap Smear [facility] Start: 02-11-2025 Adult BMI Screening Adult BMI Screen ing [facility] Start: 02-11-2025 Depression Screening Depression Scre ening [facility] Start: 02-11-2025 Tobacco Screening Tobacco Screening [facility] Start: 07-08-2024 [facility] Start: 07-08-2024 Tobacco Screening Tobacco Screening [facility] Start: 02-12-2024 End: 02-11-2025 Cytopathology procedure, preparation of smear, genital source Pap Smear Pathology and Cytology Routine Cervical smear, as part of routine gynecological examination High grade squamous intraepithelial lesion (HGSIL), grade 3 POLLY, on biopsy of cervix Expected: 02/12/2024 (Approximate), Expires: 02/11/2025 [facility] Comment on above: Expected: 02/12/2024 (Approximate), Expires: 02/11/2025 Start: 02-12-2024 End: 02-11-2025 US Pelvis transabdominal and transvaginal Ultrasound pelvic with transvaginal Imaging Routine Pelvic pain Expected: 02/12/2024, Expires: 02/11/2025 [employer] Work Phone: Comment on above: Expected: 02/12/2024 , Expires: 02/11/2025 Start: 12-01-2023 COVID-19 Vaccine ( season) COVID-19 Vaccine ( season) [facility] Start: 12-01-2023 Influenza vaccination Influenza Vacc ine [facility] Start: 10-31-2023 Influenza vaccination Flu vaccine (# 1) [facility] Start: 10-09-2023 End: 10-09-2023 Patient encounter procedure 10/09/2023 10:00 AM EDT Office Visit [facility] [address] [place] [address] [facility] Start: 08-24-2021 Screening for malign ant neoplasm of cervix [facility] Start: 08-24-2012 Screening for malign ant neoplasm of cervix Pap smear [facility] Start: 08-24-2010 Hepatitis B vaccine (1 of 3 - 19+ 3-dose series) Hepatitis B vaccine (1 of 3 - 19+ 3-dose series) [facility] Start: 08-24-2009 Adult BMI Follow Up Plan Adult BMI F ollow Up Plan [facility] Start: 08-24-2009 Hepatitis C screening Hepatitis C sc reen [facility] Start: 08-24-2006 HIV screening HIV screen [facility] Start: 08-24-2004 Varicella vaccine (1 of 2 - 13+ 2-dose series) Varicella vaccine (1 of 2 - 13+ 2-dose series) [facility] Start: 2003 Depression Screen Depression Screen [facility] Start: 2003 Depression Screening Depression Scre ening [facility] Start: 08-24-2002 DTaP,Tdap and Td Vaccines (6 - Tdap) DTaP,Tdap and Td Vaccines (6 - Tdap) [facility] Start: 08-24-2002 DTaP/Tdap/Td vaccine (6 - Tdap) DTaP/Tdap/Td vaccine (6 - Tdap) [facility] End: 07-08-2024 Cytopathology procedure, preparation of smear, genital source Pap Smear Pathology and Cytology Routine Screening for cervical cancer Hx of abnormal cervical Pap smear 1 Occurrences starting 07/09/2023 until 07/08/2024 [employer] Work Phone: Comment on above: 1 Occurrences starti ng 07/09/2023 until 07/08/2024 End: 07-08-2024 High risk HPV w/adore High risk HPV w/adore Lab Routine Screening for cervical cancer Hx of abnormal cervical Pap smear 1 Occurrences starting 07/09/2023 until 07/08/[facility] Occurrences starti ng 07/09/2023 until 07/08/2024 End: 02-11-2025 High risk HPV w/adore High risk HPV w/adore Lab Routine Cervical smear, as part of routine gynecological examination High grade squamous intraepithelial lesion (HGSIL), grade 3 PLOLY, on biopsy of cervix 1 Occurrences starting 02/12/2024 until 02/11/2025 [facility] above: 1 Occurrences starti ng 02/12/2024 until 02/11/2025 End: 02-12-2024 XR Wrist - left 3 Views [facility] Work Phone: Comment on above: 1 Occurrences starti ng 02/12/2024 until 02/12/2024 Payers Date Payer Category Payer Unknown [id number] 2024 Self-pay [id number] 2024 Unknown [id number] 2023 Blue Cross Blue [employer] Managed Care - Other [facility] [id number] 2023 Unknown [id number] 2023 Unknown [id number] 2023 Unknown [id number] 1991 Unknown [id number] .[id number] 1991 Unknown [id number] .[id number] 1991 Unknown [id number] .1286 1991 Unknown [id number] .93 1991 Unknown [id number] 2.16.840.1.535024.3.579.2 .93 1991 Unknown [id number] 2.16.840.1.512168.3.579.2 .1286 1991 Unknown [id number] 2.16.840.1.084491.3.579.2 .128 Unknown MMO [id number] Unknown MMO [employer] [id number] Unknown [place] [id number] Unknown [id number] [id number] .139 Unknown [id number] 2.16.840.1.358110.3.579.2 .139 Unknown [id number] 2.16.840.1.746341.3.579.2 .531 Unknown [id number] 2.16.840.1.090466.3.579.2 .531 Unknown [id number] [id number] .531 Unknown Regular Insurance [id number] Worker's Compensation [id number] Social History Date Type Detail Facility Start: 07-09-2023 End: 01-03-2024 Tobacco smoking status WVIS Never smoked tobacco (finding) [facility] Start: 1990 Sex Assigned At Female F [facility] Tobacco smoking stat us NHIS Tobacco smoking consumption unknown [facility] Work Phone: Start: 1990 Sex assigned at Not on file P [facility] Start: 07-09-2023 End: 02-12-2024 Gender identity Not on file [facility] Start: 06-14-2023 End: 02-13-2024 Sex Female (finding) [facility] Start: 07-09-2023 Tobacco use and exposure Smokeless tobacco non-user [facility] Start: 07-09-2023 End: 02-12-2024 Alcoholic beverage intake Current drinker of alcohol (finding) [facility] Start: 07-09-2023 End: 02-12-2024 History of Social function [facility] Within the past 12 months we worried whether our food would run out before we got money to buy more. Never True [facility] Start: 07-09-2023 Alcohol Comment socially [facility] Clinical Notes 07-09-2023 to 04-13-2024 Note Date & Type Note Facility 04-13-2024 Evaluation note Diagnosis Onset Date Resolution Bronchitis acute April 13, 2024 9:36am [facility] Work Phone: 1(616) 529-714111-13-2024 History of Present illness Narrative* Sophie Draper, NITROGEN OPERATOR-ABATTOIR MANAGER - 02/12/2024 10:30 AM EST Annual Well Woman Visit 02/12/2024 Janak Pandya is a pleasant 33 y.o. female who presents for annual product development manager exam. Periods are regularevery 28-30 days, lasting 4 days. Dysmenorrhea: mild, occurring throughout menses. Cyclic symptoms include recent onset of pelvic pain with cycles. Denies intermenstrual bleeding, spotting, or abnormal discharge. Patient declines STD testing today. Complaints today: pelvic pain with menses Relationship status: in a relationship The patient reports that there is not domestic violence in her life. 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 Non-smoker Children YES How many One vaginal delivery Current contraception: condoms History of abnormal Pap smear: yes - 2022, had CONE, was told to have paps every 6 months Last pap: -neg Regular self breast exam: no Last mammogram: n/a Family history of breast cancer: no Family history of uterine or ovarian cancer: no Family history of pancreatic or prostate cancer: no Family history of colon cancer: no HPV vaccinated: yes PHQ9 depression screenin LMP 02/05/2024 OB History 1 Para 1 Term 1 AB Living 1 SAB IAB Ectopic Multiple Live Births 1 The following portions of the patient's history were reviewed and updated as appropriate: allergies, current medications, past family history, past medical history, past social history, past surgicalhistory and problem list. MEDICAL HX Past Medical History: Diagnosis Date Abnormal Pap smear of cervix HPV (human papilloma virus) infection SURGICAL HX Past Surgical History: Procedure Laterality Date ADENOIDECTOMY CERVICAL BIOPSY W/ LOOP ELECTRODE EXCISION TONSILLECTOMY WISDOM TOOTH EXTRACTION FAMILY HX History reviewed. No pertinent family history. MEDS Current Outpatient Medications Medication Sig Dispense Refill sertraline (ZOLOFT) 25 mg tablet Take 1 tablet (25 mg total) by mouth in the morning. No current facility-administered medications for this visit. ALLERGIES No Known Allergies Review of Systems Constitutional: Negative. Respiratory: Negative. Negative for chest tightness and shortness of breath. Cardiovascular: Negative. Negative for chest pain and palpitations. Gastrointestinal: Negative. Negative for constipation, diarrhea, nausea and vomiting. Endocrine: Negative. Genitourinary: Positive for menstrual problem. Negative for dyspareunia and pelvic pain. Musculoskeletal: Negative. Skin: Negative. Allergic/Immunologic: Negative. Neurological: Negative. Hematological: Negative. Psychiatric/Behavioral: Negative. Objective BP 116/72 Ht 170.2 cm (5' 7 ) Wt 98.4 kg (217 lb) LMP 02/05/2024 BMI 33.99 kg/m Physical Exam Vitals and nursing note reviewed. Constitutional: Appearance: Normal appearance. HENT: Head: Normocephalic and atraumatic. Cardiovascular: Rate and Rhythm: Normal rate and regular rhythm. Pulses: Normal pulses. Heart sounds: Normal heart sounds. Pulmonary: Effort: Pulmonary effort is normal. Breath sounds: Normal breath sounds. Chest: Breasts: Breasts are symmetrical. Right: Normal. No mass, skin change or tenderness. Left: Normal. No mass, skin change or tenderness. Abdominal: General: Bowel sounds are normal. Palpations: Abdomen is soft. Genitourinary: General: Normal vulva. Labia: Right: No rash or lesion. Left: No rash or lesion. Vagina: Normal. Cervix: Normal. Uterus: Normal. Not enlarged and not tender. Adnexa: Right adnexa normal and left adnexa normal. Right: No mass, tenderness or fullness. Left: No mass, tenderness or fullness. Musculoskeletal: General: Normal range of motion. Cervical back: Normal range of motion and neck supple. Skin: General: Skin is warm and dry. Neurological: Mental Status: She is alert and oriented to person, place, and time. Psychiatric: Mood and Affect: Mood normal. Speech: Speech normal. Behavior: Behavior normal. Thought Content: Thought content normal. Judgment: Judgment normal. Assessment/Plan: Sridevi was seen today for gynecologic exam. Diagnoses and all orders for this visit: Well woman exam with routine gynecological exam Pelvic pain - Ultrasound pelvic with transvaginal; Future Standardized adult depression screening tool completed Cervical smear, as part of routine gynecological examination - Pap Smear; Future - High risk HPV w/adore; Future High grade squamous intraepithelial lesion (HGSIL), grade 3 POLLY, on biopsy of cervix - Pap Smear; Future - High risk HPV w/adore; Future BMI is above average; Discussed eating tips for weight loss and and exercise steps. Breast self exam technique reviewed and patient encouraged to perform self-exam monthly. Discussed healthy lifestyle modifications. Educational material distributed. Follow up in 1 year for annual product development manager exam. Follow up as needed. Await pap. Discussed ASCCP guidelines. Will discuss with POWER SUPPLY ENGINEER / ONC to determine next pap timing. Discussed taking a multivitamin. Discussed Calcium and Vitamin D for prevention of osteoporosis. Discussed need for yearly mammogram after 40 yo. Discussed colon cancer screening recommendations to begin at 45 yo, patient to discuss with PCP. All questions answered. KALEIGH Rangel APRN-VIJAYA Christensen 02/12/24 1053 documented [facility] [id number] History of Present illness Narrative* Sophie aFn Junior, NITROGEN OPERATOR-ABATTOIR MANAGER - 07/09/2023 11:30 AM EDT HPI Subjective Sridevi Pandya is a 32 y.o. female new patient who presents for a pap. Patient had ASCUS / + HRHPV on 05/11/22. Colpo 06/04/22 showed POLLY II and POLLY III. She then had a CONE. Pap 11/15/22 was negative with negative HPV. Her previous provider in [place] told patient she needed paps every 6 months. Patient would also like to discuss contraception today. She has done Nuvaring in the past, would like to try OCPS. Current contraception: condoms. Periods are regular every 28-30 days, lasting 4 days. Dysmenorrhea: moderate. Cyclic symptoms include severe cramping . No intermenstrual bleeding, spotting, or discharge. Relationship status: in a relationship Children YES How many One Sexually active: Yes BCBA Non-smoker Pertinent past medical history: none. HPV vaccinated: yes Menstrual History: Patient's last menstrual period was 07/04/2023. The following portions of the patient's history were reviewed and updated as appropriate: allergies, current medications, past family history, past medical history, past social history, past surgicalhistory, problem list, and medication reconciliation was completed including current medication andpost discharge medication. Review of Systems Constitutional: Negative. Respiratory: Negative. Negative for chest tightness and shortness of breath. Cardiovascular: Negative. Negative for chest pain and palpitations. Gastrointestinal: Negative. Negative for constipation, diarrhea, nausea and vomiting. Genitourinary: Positive for menstrual problem. Negative for dyspareunia and pelvic pain. Neurological: Negative. Psychiatric/Behavioral: Negative. Objective Blood pressure 124/80, height 170.2 cm (5' 7 ), weight 97.8 kg (215 lb 9.6 oz), last menstrual period 07/04/2023. Physical Exam Vitals and nursing note reviewed. Constitutional: Appearance: Normal appearance. Cardiovascular: Rate and Rhythm: Normal rate and regular rhythm. Pulses: Normal pulses. Heart sounds: Normal heart sounds. Pulmonary: Effort: Pulmonary effort is normal. Breath sounds: Normal breath sounds. Genitourinary: General: Normal vulva. Labia: Right: No rash or lesion. Left: No rash or lesion. Vagina: Normal. Cervix: Normal. Musculoskeletal: General: Normal range of motion. Skin: General: Skin is warm and dry. Neurological: Mental Status: She is alert and oriented to person, place, and time. Psychiatric: Mood and Affect: Mood normal. Behavior: Behavior normal. Thought Content: Thought content normal. Judgment: Judgment normal. Assessment / Plan Diagnoses and all orders for this visit: Screening for cervical cancer - Pap Smear; Future - High risk HPV w/adore; Future Hx of abnormal cervical Pap smear - Pap Smear; Future - High risk HPV w/adore; Future Encounter for general counseling and advice on contraceptive management - L norgest/e.estradioL-e.estrad (AMETHIA) 0.15 mg-30 mcg (84)/10 mcg (7) tablets,dose pack,3 month; Take 1 tablet by mouth in the morning. Encounter for initial prescription of contraceptive pills - L norgest/e.estradioL-e.estrad (AMETHIA) 0.15 mg-30 mcg (84)/10 mcg (7) tablets,dose pack,3 month; Take 1 tablet by mouth in the morning. 32 y.o. starting OCP (estrogen/progesterone), no contraindications. Await pap. Discussed ASCCP screening guidelines. Educational information provided. All questions answered. RTO 3 months for medication follow up. The patient states she desires OCPs. She understands she is recommended to use condoms for STD prevention. Additionally, the patient denies any personal or familial history of Breast cancer, HTN, PE,DVT, CVA or blood clotting disorders. She was counseled that some hormonal contraception can pose aslightly increased risk of thrombosis and embolism. She has normal blood pressure and denies liver or gallbladder disease or migraines with aura. Side effects: Nausea, breast tenderness, headaches, libido changes, depression, fatigue, acne ACHES warning signs reviewed. Pt instructed to present to ED for the following: Severe abd pain Chest pain Increase in frequency/ severity of headaches Vision problems Severe leg pain VIJAYA Sims RN Lisa M Franco, APRN-CNP 07/09/23 1209 documented in this encounterProMedica [facility] SystemEvaluation note* Diagnosis Onset Date Resolution Status Sore throat noneactive [facility] Work Phone: Evaluation note* Diagnosis Onset Date Resolution Status Acute right otitis media acu te Persistent cough for 3 weeks or longer acute Sore throat noneactive [facility] Work Phone: Evaluation note* Diagnosis Left wrist pain Pain in joint, forearm documented in this encounter [facility] noteNo assessment information availableOhio[facility] Work Phone: Evaluation note* Diagnosis Onset Date Resolution Status Admit Date Bronchitis acute April 13, 2024 9:36am [facility] Work Phone: Evaluation note* Diagnosis Screening for cervical cancer- Primary Screening for malignant neoplasm of the cervix Hx of abnormal cervical Pap smear Encounter for general counseling and advice on contraceptive management Encounter for initial prescription of contraceptive pills documented [facility]* Diagnosis Well woman exam with routine gynecological exam- Primary Routine gynecological examination Pelvic pain Standardized adult depression screening tool completed Cervical smear, as part of routine gynecological examination Screening for malignant neoplasm of the cervix High grade squamous intraepithelial lesion (HGSIL), grade 3 POLLY, on biopsy of cervix documented in this encounter [facility]* Diagnosis Onset Date Resolution Status Admit Date Neck pain noneactive October 11 11:29am [facility] Work Phone: Instructions* Attachments The following attachments cannot be sent through Care Everywhere. * Ethinyl Estradiol and Levonorgestrel, ADULT (Kyrgyz) * Control Options (Kyrgyz) documented in [facility] HospitalInstructions* Attachments The following attachments cannot be sent through Care Everywhere. * How to Perform Breast Self-Examination (Kyrgyz) documented in this encounterMer[facility] HospitalReason for referral (narrative)No reason for referral information availableOhiohealth [facility] Work Phone: Chief Complaint and Reason for Visit Chief Complaint Admit Date Sinus congestion, cough April 13 9:36am R05.9 R06.2 April 13, 2024 1 0:54am Reason for Visit Admit Date Bronchitis April 13, 2024 9 :36am Chief Complaint Congestion R05.3 - Chronic cough Reason for Visit Sore throat Chief Complaint Congestion R05.3 - Chronic cough Reason for Visit Acute right otitis m edia Persistent cough for 3 weeks or longer Sore throat Chief Complaint Admit Date LEFT WRIST PAIN February 12, 2024 9:19am Chief Complaint Admit Date LEFT WRIST PAIN February 12, 2024 9:19am E66.09 M25.532 Z68.33 February 11 4:13pm Chief Complaint Admit Date Sinus congestion, cough April 13 9:36am R05.9 - Cough, unspecified April 13, 2024 10:54am Chief Complaint Admit Date M25.561 - Pain in right knee October 06 025 7:45am Chief Complaint Admit Date M25.561 - Pain in right knee October 06 025 7:45am sore neck from how she slept October 11, 2024 11:29am Reason for Visit Admit Date Neck pain October 11, 2024 11:2 9am Advance Directives Advance Directive Response Recorded Date/ Time Advance Directives No July 14 019 9:10am Advance Directive Response Recorded Date/ Time Advance Directives No July 14 019 8:10am Summary Purpose Family History No Family History Records FoundNo Family History Records FoundNo Family History Records FoundNo Family History Records FoundNo Family History Records Found Additional Source Comments Care Teams (unrecognized sec tion and content) Team Status: Active Member Role Status Dates NON STAFF Primary Care Provider Active Team Status: Inactive Member Role Status Dates NON STAFF Primary Care Provider Active Start: January 03, 2024 End: January 03, 2024 Diana Sotelo APRN Attending Provider Active S tart: January 03, 2024 End: January 03, 2024 Team Status: Active Member Role Status Dates NON STAFF Primary Care Provider Active Start: January 03, 2024 Diana Sotelo APRN Attending Provider Active S tart: January 03, 2024 Team Status: Active Member Role Status Dates Physician None Primary Care Provider Active Team Status: Inactive Member Role Status Dates Physician None Primary Care Provider Active Star t: February 12, 2024 End: February 12, 2024 Charisma Gil APRN CNP Attending Provider Active Start: February 12, 2024 End: February 12, 2024 Team Status: Inactive Member Role Status Dates NON STAFF Primary Care Provider Active Start: April 13, 2024 End: April 13, 2024 Diana Sotelo APRN Attending Provider Active S tart: April 13, 2024 End: April 13, 2024 Team Status: Active Member Role Status Dates NON STAFF Primary Care Provider Active Start: April 13, 2024 Diana Sotelo APRN Attending Provider Active S tart: April 13, 2024 Team Status: Inactive Member Role Status Dates NON STAFF Primary Care Provider Active Start: October 06, 2024 End: October 06, 2024 Sebastian Watkins DO Attending Provider Active St art: October 06, 2024 End: October 06, 2024 Team Status: Inactive Member Role Status Dates NON STAFF Primary Care Provider Active Start: October 11, 2024 End: October 11, 2024 Aurelia Rodríguez APRN Attending Provider Active Start: October 11, 2024 End: October 11, 2024 Goals (unrecognized section and content) Goals may be documented in a n alternate sectionGoals may be documented in an alternate sectionGoals may be documented in an alternate sectionGoals may be documented in an alternate sectionGoals may be documented in an alternate sectionGoals may be documented in an alternate sectionGoals may be documented in an alternate sectionGoals may be documented in an alternate sectionNot on filedocumented as of this encounterNot on filedocumented as of this encounterGoals may be documented in an alternate sectionGoals may be documented in an alternate sectionGoals may be documented in an alternate section INFORMATION SOURCE (unrecogn ized section and content) DATE CREATED AUTHOR 02/14/2024 [facility] DATE CREATED AUTHOR AUTHOR'S ORGANIZ ATION 02/15/2024 [facility] DATE CREATED AUTHOR AUTHOR'S ORGANIZ ATION 03/01/2024 [facility] DATE CREATED AUTHOR AUTHOR'S ORGANIZ ATION 04/18/2024 [facility] DATE CREATED AUTHOR AUTHOR'S ORGANIZ ATION 10/09/2024 [facility] Reason for Visit (unrecogniz ed section and content) Reason Comments Gynecologic Exam Pt is here for chun burnham exam. FOR RECORDS PERTAINING TO PATIENTS WHO ARE OR HAVE BEEN ENROLLED IN A CHEMICAL DEPENDENCY/SUBSTANCEABUSE PROGRAM, SOME INFORMATION MAY BE OMITTED. This clinical summary was aggregated from multiple sources. Caution should be exercised in using it in the provision of clinical care. This summary normalizes information from multiple sources, and as a consequence, information in this document may materially change the coding, format and clinical context of patient data. In addition, data may be omitted in some cases. CLINICAL DECISIONS SHOULD BE BASED ON THE PRIMARY CLINICAL RECORDS. [facility] [employer] [facility]. provides no warranty or guarantee of the accuracy or completeness of information in this document.
[2024-10-11] MEDS: KETOROLAC TROMETHAMINE 60 MG/2 ML VIAL IM (14:23)
[2024-10-11] MEDS: ORPHENADRINE 60 MG/2 ML VIAL IM (14:23)
[2024-10-11 15:01] VITALS: BP 122/86; PULSE 91; O2SAT 100
[2024-10-11 15:41] LABS: Hematocrit 44.9 % (36.0-48.0); Hemoglobin 13.9 g/dL (12.0-16.0); Immature Granulocytes Abs Auto 0.05 10^3/uL (0.00-0.03); Immature Granulocytes Pct Auto 0.4 % (0.0-0.5); Lymphocytes Absolute Auto 1.6 10^3/uL (1.2-3.8); Mean Corpuscular HGB Conc 31.0 g/dL (29.9-35.2); Mean Corpuscular Hemoglobin 22.8 pg (26.7-34.0); Mean Corpuscular Volume 73.7 fL (81.0-99.0); Platelet Count 315 10^3/uL (150-450); Red Blood Count 6.09 10^6/uL (4.20-5.40); White Blood Count 12.8 10^3/uL (4.0-11.0)
--- NOTE | 2024-10-11 15:47 | ED.NECK1 ---
HPI HPI - Neck Pain/Injury General Chief Complaint: Neck Pain/Injury Stated Complaint: NECK PAIN SWELLING SWIMMERS EAR Time Seen by Provider: 10/11/24 13:54 Source: patient Mode of arrival: walk-in History of Present Illness HPI Narrative: The patient mentioned that she was working her computer when she started noticing some neck pain and spasm she went to an urgent care with she was evaluated by caregiver told her that she have some neck swelling that she did not notice before, she did mention having some sore throat But the patient is having some bilateral neck pain with limitation of movement to the left side due to spasm Patient have no other concerns Related Data Home Medications ?Medication ?Instructions ?Recorded ?Confirmed sertraline 50 mg tablet mg 10/05/24 Previous Rx's ?Medication ?Instructions ?Recorded diclofenac sodium 75 mg 75 mg PO BID PRN pain #20 tabs 10/05/24 tablet,delayed release diclofenac sodium 75 mg 75 mg PO Q12H PRN pain #20 tabs 10/11/24 tablet,delayed release orphenadrine citrate 100 mg 100 mg PO BID PRN muscle spasm #20 10/11/24 tablet,extended release tabs prednisone 20 mg tablet 40 mg (2 x 20 mg) PO DAILY 5 days 10/11/24 #10 tabs Allergies Allergy/AdvReac Type Severity Reaction Status Date / Time No Known Drug Allergies Allergy Verified 10/05/24 07:36 Opioid HPI Opioid Management Most Recent Opioid Data: Last Pain Scale 7 Today, 14:40 Last ED Pain Assessment Today, 14:40 Last MAR Pain Assessment Today, 14:23 Review of Systems ROS Status of ROS 10 or more systems reviewed and unremarkable except as noted in history and below PFSH PFSH Social History Little interest or pleasure in doing things: not at all Feeling down, depressed, or hopeless: not at all Exam Narrative Exam Narrative: Nurses notes and vital signs reviewed and patient is not hypoxic. General: Well-appearing and in no apparent distress. Skin: Warm, dry, no pallor noted. No rash. Head: Normocephalic, atraumatic. Neck: Paraspinal muscle tenderness and no intervertebral line tenderness , the tenderness mostly to the left side Eye: Pupils are equal, round and EOMI. No scleral icterus. Ears, Nose, Mouth, and Throat: TM are clear, no nasal mucosal hypertrophy. Oral mucosa is moist, no posterior oropharynx erythema, uvula is mid-line Cardiovascular: Regular Rate and Rhythm without murmur, gallop or rub. Respiratory: No accessory muscle use or respiratory distress. Lungs are clear to auscultation, no wheezing, rales or rhonchi Chest Wall: no tenderness Back: No midline thoracic or lumbar vertebral tenderness. No CVA tenderness Musculoskeletal: normal ROM, no calf or popliteal tenderness, no lower extremity edema/swelling GI: Abdomen is soft, non-distended. Normal bowel sounds. No masses appreciated. No tenderness to palpation. No rebound, guarding, or rigidity noted. Neurological: A&O x4. No cranial nerve dysfunction observed. No truncal ataxia. Moves all extremities. Sensation intact. Psychiatric: Cooperative and interactive. Normal mood and affect. Constitutional Vital Signs, click to edit/add: Last Vital Signs Pulse 91 H 10/11/24 15:01 Resp 18 10/11/24 15:01 BP 122/86 10/11/24 15:01 Pulse Ox 100 10/11/24 15:01 O2 Del Method Room Air 10/11/24 13:31 Course Vital Signs Vital signs: Vital Signs Pulse Rate 115 H 10/11/24 13:31 Respiratory Rate 18 10/11/24 13:31 Blood Pressure 139/90 10/11/24 13:31 Pulse Oximetry 100 10/11/24 13:31 Oxygen Delivery Method Room Air 10/11/24 13:31 Pulse Rate 91 H 10/11/24 15:01 Respiratory Rate 18 10/11/24 15:01 Blood Pressure 122/86 10/11/24 15:01 Pulse Oximetry 100 10/11/24 15:01 Oxygen Delivery Method Room Air 10/11/24 13:31 MDM - Neck Pain/Injury MDM Narrative Medical decision making narrative: The patient complete examination was benign there with no swelling in her face or her neck and there was no tenderness on palpation of the floor of the mouth there was no other pathology detected and her airway was completely benign It was noted that the patient was evaluated in urgent care she was told that she had ear infection which in my evaluation she did not have any signs of infection although the patient had tonsillectomy and she was told that she have some swelling in her throat that I could not appreciate The patient right now was initially treated with Toradol and Norflex after which she was feeling better but I did some blood work just to make sure there is no underlying pathology that could be missed and her white blood cell was 12 but there is no signs of infection or any concern at the moment clinically The patient was also provided with prednisone as supportive care for torticollis I did explain to the patient the plan and she agreed because she did not have any complain regarding her throat at any time the pain complaint was mostly to the neck The patient is to follow up with primary care physician in next 2-3 days or to return to the emergency department should any of the signs or symptoms worsen or new symptoms develop. The patient agrees with the following Diagnosis and Treatment plan and the patient will be discharged home. Lab Data Labs: Lab Results 10/11/24 Range/Units 15:15 WBC 12.8 H (4.0-11.0) 10^3/uL RBC 6.09 H (4.20-5.40) 10^6/uL Hgb 13.9 (12.0-16.0) g/dL Hct 44.9 (36.0-48.0) % MCV 73.7 L (81.0-99.0) fL MCH 22.8 L (26.7-34.0) pg MCHC 31.0 (29.9-35.2) g/dL RDW 16.6 H (11.0-15.0) % Plt Count 315 (150-450) 10^3/uL MPV 9.2 L (9.5-13.5) fL Neut % (Auto) 79.9 H (43.0-75.0) % Lymph % (Auto) 12.6 L (20.5-60.0) % [place] % (Auto) 6.3 (1.7-12.0) % Eos % (Auto) 0.5 L (0.9-7.0) % Baso % (Auto) 0.3 (0.2-2.0) % Neut # (Auto) 10.3 H (1.4-6.5) 10^3/uL Lymph # (Auto) 1.6 (1.2-3.8) 10^3/uL [place] # (Auto) 0.8 (0.3-0.8) 10^3/uL Eos # (Auto) 0.1 (0.0-0.7) 10^3/uL Baso # (Auto) 0.0 (0.0-0.1) 10^3/uL Abs Immat Gran (auto) 0.05 H (0.00-0.03) 10^3/uL Imm/Tot Granulo (auto) 0.4 (0.0-0.5) % Sodium 141 (136-145) mmol/L Potassium 3.8 (3.5-5.1) mmol/L Chloride 103 (98-107) mmol/L Carbon Dioxide 24.9 (21.0-32.0) mmol/L Anion Gap 16.9 BUN 11.0 (7.0-18.0) mg/dL Creatinine 0.76 (0.55-1.02) mg/dL Est GFR ( Amer) >60 (>=60 mL/min/1.73m^2) Est GFR (Non-Af Amer) >60 (>=60 mL/min/1.73m^2) BUN/Creatinine Ratio 14.5 Glucose 90 (74-106) mg/dL Calcium 9.3 (8.5-10.1) mg/dL Total Bilirubin 0.5 (0.2-1.0) mg/dL AST 14 L (15-37) U/L ALT 21 (14-59) U/L Alkaline Phosphatase 110 (46-116) U/L Total Protein 8.1 (6.4-8.2) g/dL Albumin 3.8 (3.4-5.0) g/dL Globulin 4.3 g/dL Albumin/Globulin Ratio 0.9 Discharge Plan Discharge Chief Complaint: Neck Pain/Injury Clinical Impression: Torticollis Patient Disposition: Home, Self-Care Time of Disposition Decision: 16:45 Condition: Good Prescriptions / Home Meds: New orphenadrine citrate 100 mg tablet extended release 100 mg PO BID PRN (Reason: muscle spasm) Qty: 20 0RF prednisone 20 mg tablet 40 mg PO DAILY 5 Days Qty: 10 0RF diclofenac sodium 75 mg tablet,delayed release (DR/EC) 75 mg PO Q12H PRN (Reason: pain) Qty: 20 0RF No Action sertraline 50 mg tablet diclofenac sodium 75 mg tablet,delayed release (DR/EC) 75 mg PO BID PRN (Reason: pain ) Qty: 20 0RF Print Language: Finnish Instructions: Spasmodic Torticollis (ED), Neck Pain (ED) Referrals: Physician,Non-Staff, MD [Primary Care Provider] - 1 week Discharge Date/Time: 10/11/24 17:08
[2024-10-11 16:05] LABS: Alanine Aminotransferase 21 U/L (14-59); Albumin Globulin Ratio 0.9; Albumin Level 3.8 g/dL (3.4-5.0); Alkaline Phosphatase 110 U/L (46-116); Anion Gap 16.9; Aspartate Amino Transferase 14 U/L (15-37); Blood Urea Nitrogen 11.0 mg/dL (7.0-18.0); Calcium 9.3 mg/dL (8.5-10.1); Carbon Dioxide 24.9 mmol/L (21.0-32.0); Chloride 103 mmol/L (98-107); Estimated GFR (African America >60 (>=60 mL/min/1.73m^2); Estimated GFR (Non-African Ame >60 (>=60 mL/min/1.73m^2); Globulin 4.3 g/dL; Glucose 90 mg/dL (74-106); Potassium 3.8 mmol/L (3.5-5.1); Sodium 141 mmol/L (136-145); Total Protein 8.1 g/dL (6.4-8.2)
== END 2024-10-11 17:08 | disposition home or self-care (01) ==
PROVIDERS: Emergency Provider Emergency Medicine
DX: M43.6 Torticollis (principal)
CPT/HCPCS: 36415; 80053; 85025; 96372; 99284; J1885; J2360